=== PATIENT | male | born 1940 | race Caucasian/White ===

== ENCOUNTER 2018-05-01 19:14 | Emergency (ER) | payer OTHER ==
--- NOTE | 2018-05-01 19:21 | PDOC ---
Rapid Medical Evaluation Time Seen by Provider: 05/01/18 19:17 Medical Evaluation: Allergies Allergy/AdvReac Type Severity Reaction Status Date / Time No Known Allergies Allergy Verified 11/18/14 14:43 05/01/18 19:18 I have performed a brief in-person evaluation of this patient. The patient presents with a chief complaint of: epistaxis x4 hours on AC. + digital trauma Pertinent physical exam findings: uncontrolled bleeding from right naris I have ordered the following: nothing The patient will proceed to the ED for further evaluation. Discharge Disposition - Diagnosis Epistaxis - Referrals - Patient Instructions - Post Discharge Activity
[2018-05-01 19:22] VITALS: BP 133/78; PULSE 76; TEMP 97.6; BMI 27.5
[2018-05-01] MEDS ORDERED: LIDOCAINE HCL 1%, 10 MG/ML (50 mL VIAL) INF ONE (23:13)
[2018-05-01] MEDS ORDERED: OXYMETAZOLINE 0.05% NASAL SOLUTION 15 ML BOTTLE NS ONE (23:13)
[2018-05-01] MEDS ORDERED: LIDOCAINE HCL 1%, 10 MG/ML (20ML VIAL) ONE (23:14)
[2018-05-01 23:29] LABS: BASO % 0.7 % (0-2.0); EOS % 2.5 % (0-4.5); HEMATOCRIT 41.8 % (35.4-49); HEMOGLOBIN 14.7 GM/dL (11.7-16.9); LYMPH % 16.5 % (8-40); MCH 33.9 pg (25.7-33.7); MCHC 35.1 g/dl (32.0-35.9); MEAN CELL VOLUME 96.7 fl (80-96); MEAN PLT VOLUME 9.8 fl (7.5-11.1); MONO % 14.6 % (3.8-10.2); NEUT % 65.7 % (42.8-82.8); PLATELET COUNT 159 K/MM3 (134-434); RBC 4.32 M/mm3 (4.00-5.60); RDW 14.1 % (11.9-15.9); WHITE BLOOD COUNT 6.9 K/mm3 (4.0-10.0)
[2018-05-01 23:48] LABS: INR 1.39 (0.83-1.09); PROTHROMBIN TIME (PATIENT) 16.5 SEC (9.7-13.0)
[2018-05-01 23:50] LABS: ACTIVATED PTT 32.2 SECONDS (25.2-36.5)
--- NOTE | 2018-05-02 | PDOC ---
History of Present Illness - General Chief Complaint: Nasal Bleeding Stated Complaint: NOSE BLEED Time Seen by Provider: 05/01/18 19:17 History Source: Patient Exam Limitations: No Limitations - History of Present Illness Initial Comments: 77 y/o M hx of HTN, defib, PCI s/p 3, CVA x2 (2004, 2014), defib, thromboendarterectomy presents with R nasal bleeding that started around 3:30 PM today after he picked his nose. Patient packed his nose with napkin. Patient is on ASA 81 mg daily, Eliquis 5 mg BID and Brilinta 90 mg BID. Denies fever, sob, cp, dizziness, fatigue. 05/01/18 23:42 Past History - Past Medical History Allergies/Adverse Reactions: Allergies Allergy/AdvReac Type Severity Reaction Status Date / Time No Known Allergies Allergy Verified 05/01/18 19:21 Home Medications: Ambulatory Orders Aspirin [ASA -] 81 mg PO HS 11/18/14 Apixaban [Eliquis] 5 mg PO BID 05/01/18 Atorvastatin Ca [Lipitor] 20 mg PO HS 05/01/18 Cyanocobalamin (Vitamin B-12) [Vitamin B12] 1,000 mcg PO DAILY 05/01/18 Folic Acid 1 mg PO DAILY 05/01/18 Ticagrelor [Brilinta] 90 mg PO BID 05/01/18 Vitamin B Complex [B Complex] 1 each PO DAILY 05/01/18 Cephalexin [Keflex] 500 mg PO BID #10 capsule 05/02/18 Cardiac Disorders: Yes COPD: No HTN: Yes - Surgical History Appendectomy: Yes Cardiac Surgery: Yes (defib, stent, thromboendarterectomy) - Suicide/Smoking/Psychosocial Hx Smoking History: Never smoked Have you smoked in the past 12 months: No Hx Alcohol Use: Yes (OCCASIONALLY) Drug/Substance Use Hx: No Substance Use Type: None Hx Substance Use Treatment: No Review of Systems - Review of Systems Comments:: See hpi 05/02/18 00:05 *Physical Exam - Vital Signs Last Vital Signs Temp Pulse Resp BP Pulse Ox 97.6 F 76 18 133/78 99 05/01/18 19:17 05/01/18 19:17 05/01/18 19:17 05/01/18 19:17 05/01/18 19:17 - Physical Exam General Appearance: No: Apparent Distress HEENT: positive: Normal Voice, Other (+Small active bleeding to R nare, unable to see site of bleeding, slight dried blood in posterior pharynx, L nare unremarkable). negative: Muffled/Hoarse voice Neck: positive: Supple Respiratory/Chest: positive: Lungs Clear, Normal Breath Sounds. negative: Respiratory Distress Cardiovascular: positive: Regular Rhythm, Regular Rate, S1, S2. negative: Murmur Neurologic: positive: Fully Oriented, Alert, Normal Mood/Affect Moderate Sedation - Procedure Monitoring Vital Signs: Procedure Monitoring Vital Signs Temperature 97.6 F 05/01/18 19:17 Pulse Rate 76 05/01/18 19:17 Respiratory Rate 18 05/01/18 19:17 Blood Pressure 133/78 05/01/18 19:17 O2 Sat by Pulse Oximetry (%) 99 05/01/18 19:17 ED Treatment Course - LABORATORY CBC & Chemistry Diagram: 05/01/18 23:20 - ADDITIONAL ORDERS Additional order review: 05/01/18 23:20 RBC 4.32 MCV 96.7 H MCHC 35.1 RDW 14.1 MPV 9.8 Neutrophils % 65.7 Lymphocytes % 16.5 Monocytes % 14.6 H Eosinophils % 2.5 D Basophils % 0.7 Medical Decision Making - Medical Decision Making 77 y/o M hx of HTN, defib, PCI s/p 3, CVA x2 (2004, 2014), defib, thromboendarterectomy presents with R nasal bleeding x 1 day; patient is on 3 blood thinners: ASA, Eliquis and Brilinta. Rhinorocket was placed in patient's R nare with improvement in bleeding. Labs show unremarkable CBC. Will d/c patient on Keflex and provide referral to ENT for further care. 05/02/18 00:11 *DC/Admit/Observation/Transfer Diagnosis at time of Disposition: Epistaxis - Discharge Dispostion Disposition: HOME Decision to Admit order: No - Prescriptions Prescriptions: Cephalexin [Keflex] 500 mg PO BID #10 capsule - Referrals Referrals: Vasu Nieves [Primary Care Provider] - 3 days Antonio Sofia MD [Staff Physician] - Call tomorrow - Patient Instructions Printed Discharge Instructions: DI for Nosebleed Additional Instructions: Thank you for choosing [facility]. It was a pleasure taking care of you. You were seen here for nasal bleeding, which was controlled with nasal packing. Please take the antibiotics as directed for 5 days Please call the ENT doctor tomorrow to make appointment for follow-up Use saline nasal spray in nose twice a day Also recommend humdifier. Avoid picking your nose. Return to the Emergency Department if your symptoms worsen or persist, you have fever, shortness of breath, chest pain, heavy bleeding, lightheadedness or other concerning symptoms. - Post Discharge Activity
[2018-05-02] MEDS ORDERED: CEPHALEXIN MONOHYDRATE 500 MG CAPSULE (UD) PO ONE (00:01)
[2018-05-02] MEDS ORDERED: CEPHALEXIN MONOHYDRATE 500 MG CAPSULE (UD) ONE (00:05)
== END 2018-05-02 00:31 | disposition home or self-care (01) ==
LOC: JER 19:14
PROC: 2Y41X5Z Packing of Nasal Region using Packing Material (ICD-10-PCS; principal; 2018-05-01)
PROC: 093K7ZZ Control Bleeding in Nasal Mucosa and Soft Tissue, Via Natural or Artificial Opening (ICD-10-PCS; 2018-05-01)
DX: R04.0 Epistaxis (principal); I25.10 Atherosclerotic heart disease of native coronary artery without angina pectoris; I10 Essential (primary) hypertension; Z95.5 Presence of coronary angioplasty implant and graft; Z86.73 Personal history of transient ischemic attack (TIA), and cerebral infarction without residual deficits; Z79.01 Long term (current) use of anticoagulants; Z95.810 Presence of automatic (implantable) cardiac defibrillator
CPT/HCPCS: 36415; 85025; 85610; 85730; 99281-25; 99282-25

== ENCOUNTER 2019-04-26 06:22 | Inpatient (IN) | payer OTHER ==
[2019-04-26 06:34] VITALS: BMI 27.5
[2019-04-26 06:52] LABS: BASO % 0.9 % (0-2.0); EOS % 2.2 % (0-4.5); HEMATOCRIT 41.2 % (35.4-49); HEMOGLOBIN 14.1 GM/dL (11.7-16.9); LYMPH % 28.6 % (8-40); MCH 33.5 pg (25.7-33.7); MCHC 34.2 g/dl (32.0-35.9); MEAN PLT VOLUME 9.1 fl (7.5-11.1); MONO % 14.4 % (3.8-10.2); NEUT % 53.9 % (42.8-82.8); PLATELET COUNT 156 K/MM3 (134-434); RDW 14.3 % (11.9-15.9); WHITE BLOOD COUNT 7.5 K/mm3 (4.0-10.0)
--- NOTE | 2019-04-26 07:10 | PDOC ---
History of Present Illness - General Chief Complaint: Chest Pain Stated Complaint: DEFIBRILLATOR PROBLEM History Source: Patient Exam Limitations: No Limitations - History of Present Illness Initial Comments: Pt is a 78 yo M, with PMH of CHF, arrhythymia (with ICD, cardiac stent, on eliquis and brilinta), HTN, CVA x2, and LLE DVT, who is presenting via EMS after his ICD "shocked him" this morning at 5:30 AM. Pt states he was awoken from sleep by the shock. Pt states he has been feeling well recently, tolerating PO intake and exercise as normal. Pt states he was recently called to his skill training program coordinator to have the pacemaker evaluated, as it was "setting of the monitor at home". Pt is scheduled to have his ICD replaced 04/[address] Rdz ( [facility]). Pt denies any fevers/chills, headache, vision changes, syncope, chest pain, palpitations, SOB, nausea/vomiting, abdominal pain, urinary symptoms, diarrhea/constipation, or leg swelling. Allergies: NKDA PCP: Dr. Oneil [employer] Specialist: Dr. Hieu Ennis ([phone]) Social: Pt denies any cigarette, alcohol, or drug use. Pt denies any recent travel or sick contacts. Surgical: appendectomy, DVT removal LLE, ICD placement Family: no relevant history. 04/26/19 07:37 Past History - Travel Traveled outside of the country in the last 30 days: No Close contact w/someone who was outside of country & ill: No - Past Medical History Allergies/Adverse Reactions: Allergies Allergy/AdvReac Type Severity Reaction Status Date / Time No Known Allergies Allergy Verified 04/26/19 06:29 Home Medications: Ambulatory Orders Apixaban [Eliquis] 5 mg PO DAILY 04/26/19 Atorvastatin Ca [Lipitor] 20 mg PO HS 04/26/19 Folic Acid 1 mg PO DAILY 04/26/19 Ticagrelor [Brilinta] 90 mg PO DAILY 04/26/19 Cardiac Disorders: Yes COPD: No HTN: Yes - Surgical History Appendectomy: Yes Cardiac Surgery: Yes (defib, stent, thromboendarterectomy) - Psycho Social/Smoking Cessation Hx Smoking History: Never smoked Have you smoked in the past 12 months: No Hx Alcohol Use: Yes (OCCASIONALLY) Drug/Substance Use Hx: No Substance Use Type: None Hx Substance Use Treatment: No Cardiac Specific PMH - Complaint Specific PMHX Abdominal Aortic Aneurysm: No Angina: No Cardiac Arrhythmia: Yes Cardiac Stent: Yes GERD: No Myocardial Infarction: No Pacemaker: Yes Pulmonary Embolus: No Valvular Heart Disease: No Peripheral Vascular Disease: No Review of Systems - Review of Systems Able to Perform ROS?: Yes Is the patient limited Greenlandic proficient: No Constitutional: Yes: Weight Stable. No: Chills, Diaphoresis, Fever, Loss of Appetite, Malaise, Weakness HEENTM: No: Recent change in vision, Nose Congestion, Throat Pain, Throat Swelling, Difficulty Swallowing Respiratory: No: Cough, Orthopnea, Shortness of Breath Cardiac (ROS): Yes: See HPI. No: Chest Pain, Edema, Irregular Heart Rate, Lightheadedness, Palpitations, Syncope, Chest Tightness ABD/GI: No: Constipated, Diarrhea, Nausea, Poor Appetite, Vomiting, Abdominal cramping : No: Burning, Dysuria, Frequency, Pain, Urgency Musculoskeletal: No: Back Pain, Joint Pain, Muscle Pain, Muscle Weakness Integumentary: No: Rash Neurological: No: Headache, Numbness, Weakness, Unsteady Gait, Dizziness Psychiatric: No: Sleep Pattern Change, Change in Appetite Endocrine: No: Increased Urine, Change in Weight Hematologic/Lymphatic: Yes: See HPI, Blood Clots. No: Anemia, Easy Bleeding, Easy Bruising All Other Systems: Reviewed and Negative *Physical Exam - Vital Signs Last Vital Signs Temp Pulse Resp BP Pulse Ox 98.3 F 63 14 134/84 98 04/26/19 07:19 04/26/19 07:19 04/26/19 07:19 04/26/19 07:19 04/26/19 07:19 - Physical Exam Comments: HR 50s, BP 134/84 on exam, pt afebrile. Pt in NAD, resting comfortably. Normal body habitus. Pt alert and oriented x3. 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 No midline spinal tenderness, step-offs, or crepitus. Head normocephalic, atraumatic. Eyes PERRLA, EOMI. Oropharynx without erythema or exudates, no LAD b/l. No nasal congestion. Hearing intact. Irregular HR on exam. ICD in left chest wall. Clear heart sounds, S1/S2, no JVD , b/l pedal edema, or heart murmur. Clear lung sounds, no respiratory distress, wheezes, crackles, or accessory muscle use. No abdominal or CVA tenderness to palpation, no rebound, no guarding. Abdomen soft, non-distended, and with normoactive bowel sounds. Skin without jaundice or rash. 04/26/19 07:46 ED Treatment Course - LABORATORY CBC & Chemistry Diagram: 04/26/19 06:38 04/26/19 06:38 - ADDITIONAL ORDERS Additional order review: Laboratory Results 04/26/19 04/26/19 04/26/19 06:38 06:38 06:38 PT with INR 15.10 H INR 1.28 H PTT (Actin FS) 25.1 L Sodium 140 Potassium 4.0 Chloride 106 Carbon Dioxide 27 Anion Gap 7 L BUN 16.8 Creatinine 1.3 Est GFR (CKD-EPI)AfAm 60.57 Est GFR (CKD-EPI)NonAf 52.26 Random Glucose 85 Calcium 8.9 Magnesium 2.1 Total Bilirubin 0.7 AST 28 ALT 22 Alkaline Phosphatase 83 Creatine Kinase 130 Cancelled Troponin I 0.04 Cancelled Total Protein 7.5 Albumin 3.5 04/26/19 06:38 RBC 4.20 MCV 98.0 H MCHC 34.2 RDW 14.3 MPV 9.1 Neutrophils % 53.9 Lymphocytes % 28.6 D Monocytes % 14.4 H Eosinophils % 2.2 Basophils % 0.9 Medical Decision Making - Medical Decision Making Pt was seen at bedside, also will be seen by attending Dr. Chappell. Pt presenting after his ICD went off this morning. Pt currently asymptomatic, with non- sustained PVCs. Pt declined any nausea or pain control at this time. Will continue to reassess pt and monitor for symptomatic improvement. ECG: Sinus bradycardia with occasional premature supraventricular complexes and PVCs, RBBB (Hr 69, RI 156, QRS 162, QTc 535). No TWIs or significant ST segment changes. Unable to view prior ECG (2014). Pt provided ECG from another hospital from 2018 with PVCs at that time. 04/26/19 07:47 CBC and CMP WNL Trop .04 Placed call to pts skill training program coordinator and CT surgeon to discuss earlier placement or discharge with f/u for scheduled procedure on Sunday. 04/26/19 07:49 Chest x-ray with pacemaker noted. No acute pathology. 04/26/19 07:[address] Rdz (CT at [facility]), who accepted the pt for transfer and is arranging. Pt signed transfer consent. Pt stable and resting, no further cardiac/defib events. 04/26/19 09:07 Discharge - Discharge Information Problems reviewed: Yes Clinical Impression/Diagnosis: ICD (implantable cardioverter-defibrillator) lead failure Qualifiers: Encounter type: initial encounter Qualified Code(s): T82.110A - Breakdown ( mechanical) of cardiac electrode, initial encounter Condition: Stable Disposition: TRANSFER ACUTE CARE/OTHER HOSP - Admission No - Follow up/Referral Referrals: Vasu Nieves [Primary Care Provider] - - Patient Discharge Instructions - Post Discharge Activity - Transfer to Acute Care Facility Accepting Physician:: Dr. Rdz Transfer Comment: [facility], [place] unit for ICD replacement 04/26/19 09:07
[2019-04-26 07:17] LABS: INR 1.28 (0.83-1.09); PROTHROMBIN TIME (PATIENT) 15.1 SEC (9.7-13.0)
[2019-04-26 07:20] LABS: ACTIVATED PTT 25.1 SECONDS (25.2-36.5); ALBUMIN 3.5 g/dl (3.4-5.0); BILIRUBIN,TOTAL 0.7 mg/dL (0.2-1); BLOOD UREA NITROGEN 16.8 mg/dL (7-18); CALCIUM 8.9 mg/dL (8.5-10.1); CREATININE 1.3 mg/dL (0.55-1.3); MAGNESIUM 2.1 mg/dL (1.8-2.4); TOT PROT 7.5 g/dl (6.4-8.2)
--- NOTE | 2019-04-26 08:03 | PDOC ---
Attending Attestation - Resident Resident Name: Nia Kowalski - ED Attending Attestation I have performed the following: I have examined & evaluated the patient, The case was reviewed & discussed with the resident, I agree w/resident's findings & plan, Exceptions are as noted - HPI HPI: 04/26/19 08:00 78-year-old gentleman history of CHF, A. fib on Eliquis, hypertension, CVA, DVT presenting to the ED via EMS due to his ICD going off. Patient denies any other symptoms states that the past few days he has been feeling fine without any chest pain, syncope, shortness of breath, lightheadedness, palpitations, fever, chills, n/v, cough, abdominal pain, back pain. Patient states that he has been getting preop to get his defibrillator replaced. Exam: GENERAL: The patient is awake, alert, and fully oriented, Nontoxic - in no acute distress. HEAD: Normocephalic, atraumatic. EYES: extraocular movements intact, sclera anicteric, conjunctiva clear. ENT: Normal voice, Moist mucous membranes. NECK: Normal range of motion, supple LUNGS: Breath sounds equal, clear to auscultation bilaterally. No wheezes, no rhonchi, no rales. icd in place on L chest HEART: Regular rate and rhythm, normal S1 and S2 without murmur, rub or gallop. ABDOMEN: Soft, nontender, No guarding, no rebound. No CVA tenderness EXTREMITIES: Normal range of motion, hyperpigmentation of lower externally's bilaterally, trace pitting edema NEUROLOGICAL: No facial assymetry, Normal speech, PSYCH: Normal mood, normal affect. SKIN: Warm, Dry, normal turgor, Patient is on a campus monitor, We will check electrolytes, troponin, EKG We will discuss with cardiology regarding disposition and need for interrogation - Physicial Exam PE: 04/26/19 11:02 labs reviewed will admit for further management
--- NOTE | 2019-04-26 09:46 | PDOC ---
*Physical Exam - Vital Signs Last Vital Signs Temp Pulse Resp BP Pulse Ox 98.3 F 63 14 134/84 98 04/26/19 07:19 04/26/19 07:19 04/26/19 07:19 04/26/19 07:19 04/26/19 07:19 ED Treatment Course - LABORATORY CBC & Chemistry Diagram: 04/26/19 06:38 04/26/19 06:38 - ADDITIONAL ORDERS Additional order review: Laboratory Results 04/26/19 04/26/19 04/26/19 06:38 06:38 06:38 PT with INR 15.10 H INR 1.28 H PTT (Actin FS) 25.1 L Sodium 140 Potassium 4.0 Chloride 106 Carbon Dioxide 27 Anion Gap 7 L BUN 16.8 Creatinine 1.3 Est GFR (CKD-EPI)AfAm 60.57 Est GFR (CKD-EPI)NonAf 52.26 Random Glucose 85 Calcium 8.9 Magnesium 2.1 Total Bilirubin 0.7 AST 28 ALT 22 Alkaline Phosphatase 83 Creatine Kinase 130 Cancelled Troponin I 0.04 Cancelled Total Protein 7.5 Albumin 3.5 04/26/19 06:38 RBC 4.20 MCV 98.0 H MCHC 34.2 RDW 14.3 MPV 9.1 Neutrophils % 53.9 Lymphocytes % 28.6 D Monocytes % 14.4 H Eosinophils % 2.2 Basophils % 0.9 Medical Decision Making - Medical Decision Making Transfer to [facility] will not happen until tomorrow due to bed availability. Pt will be admitted to Dr. Bianchi (admits for Dr. Oneil) for telemetry until pt can be transferred via ACLS. Pt requires observation due to ICD failure. Paged Dr. Bianchi 04/26/19 09:[address] Bianchi for admission. 04/26/19 10:16 Discharge - Discharge Information Problems reviewed: Yes Clinical Impression/Diagnosis: ICD (implantable cardioverter-defibrillator) lead failure Qualifiers: Encounter type: initial encounter Qualified Code(s): T82.110A - Breakdown ( mechanical) of cardiac electrode, initial encounter Condition: Stable - Admission Yes - Follow up/Referral Referrals: Vasu Nieves [Primary Care Provider] - - Patient Discharge Instructions - Post Discharge Activity
--- NOTE | 2019-04-26 14:01 | HP ---
Admitting History and Physical - Admission History of Present Illness: Pt is a 78 yo M, with PMH of CHF, arrhythymia (with ICD, cardiac stent, on eliquis and brilinta), HTN, CVA x2, and LLE DVT, who is presenting via EMS after his ICD "shocked him" this morning at 5:30 AM. Pt states he was awoken from sleep by the shock. Pt states he has been feeling well recently, tolerating PO intake and exercise as normal. Pt states he was recently called to his fur sorter to have the pacemaker evaluated, as it was "setting of the monitor at home". Pt is scheduled to have his ICD replaced 04/[address] Rdz ( [facility]). Pt denies any fevers/chills, headache, vision changes, syncope, chest pain, palpitations, SOB, nausea/vomiting, abdominal pain, urinary symptoms, diarrhea/constipation, or leg swelling. 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 No: Seizure, Syncope, Vertigo Cardiovascular: Yes: CAD, HTN - Past Surgical History Past Surgical History: Yes: Stent - Smoking History Smoking history: Never smoked Have you smoked in the past 12 months: No - Alcohol/Substance Use Hx Alcohol Use: Yes (OCCASIONALLY) Home Medications - Allergies Allergies/Adverse Reactions: Allergies Allergy/AdvReac Type Severity Reaction Status Date / Time No Known Allergies Allergy Verified 04/26/19 06:29 - Home Medications Home Medications: Ambulatory Orders Atorvastatin Ca [Lipitor] 20 mg PO HS 04/26/19 Folic Acid 1 mg PO DAILY 04/26/19 Review of Systems - Review of Systems Constitutional: reports: No Symptoms Eyes: reports: No Symptoms HENT: reports: No Symptoms Neck: reports: No Symptoms Cardiovascular: reports: Other (ICD malfunction / missfire) Respiratory: reports: No Symptoms Gastrointestinal: reports: No Symptoms Genitourinary: reports: No Symptoms Musculoskeletal: reports: No Symptoms Integumentary: reports: No Symptoms Neurological: reports: No Symptoms Endocrine: reports: No Symptoms Hematology/Lymphatic: reports: No Symptoms Psychiatric: reports: No Symptoms Physical Examination Vital Signs: Vital Signs Temperature 98.3 F 04/26/19 07:19 Pulse Rate 59 L 04/26/19 09:59 Respiratory Rate 22 H 04/26/19 09:59 Blood Pressure 139/77 04/26/19 09:59 O2 Sat by Pulse Oximetry (%) 100 04/26/19 09:59 Constitutional: Yes: Well Nourished, No Distress, Calm Eyes: Yes: Conjunctiva Clear, EOM Intact HENT: Yes: Atraumatic, Normocephalic Neck: Yes: Supple, Trachea Midline Cardiovascular: Yes: Regular Rate and Rhythm Respiratory: Yes: Regular, CTA Bilaterally Gastrointestinal: Yes: Normal Bowel Sounds, Soft ...Rectal Exam: Yes: Deferred Renal/: Yes: WNL Breast(s): Yes: WNL Musculoskeletal: Yes: WNL Extremities: Yes: WNL Edema: No Peripheral Pulses WNL: Yes Neurological: Yes: Alert, Oriented ...Motor Strength: WNL Psychiatric: Yes: Alert, Oriented Labs: CBC, BMP 04/26/19 06:38 04/26/19 06:38 Problem List - Problems (1) ICD (implantable cardioverter-defibrillator) lead failure Code(s): T82.110A - BREAKDOWN (MECHANICAL) OF CARDIAC ELECTRODE, INIT ENCNTR Qualifiers: Encounter type: initial encounter Qualified Code(s): T82.110A - Breakdown ( mechanical) of cardiac electrode, initial encounter
--- NOTE | 2019-04-26 18:02 | EKG ---
Test Reason : Blood Pressure : / mmHG Vent. Rate : 069 BPM Atrial Rate : 055 BPM P-R Int : 156 ms QRS Dur : 162 ms QT Int : 500 ms P-R-T Axes : 062 077 033 degrees QTc Int : 535 ms Suspect unspecified pacemaker failure SINUS BRADYCARDIA WITH OCCASIONAL ventricular-paced complexes AND PREMATURE SUPRAVENTRICULAR COMPLEXES AND WITH FREQUENT PREMATURE VENTRICULAR COMPLEXES RIGHT BUNDLE BRANCH BLOCK LATERAL INFARCT , AGE UNDETERMINED CANNOT RULE OUT INFERIOR INFARCT , AGE UNDETERMINED ABNORMAL ECG Confirmed by MD Jocelin, Harlan ([id number]) on 04/26/2019 6:02:08 PM Referred By: EDMAR Confirmed By:Harlan Monreal MD
[2019-04-26] MEDS ORDERED: ATORVASTATIN CA 20 MG TABLET (FP) PO SCH (22:00)
[2019-04-27 07:45] LABS: BASO % 0.6 % (0-2.0); EOS % 3.2 % (0-4.5); HEMATOCRIT 39.7 % (35.4-49); HEMOGLOBIN 13.4 GM/dL (11.7-16.9); LYMPH % 22.2 % (8-40); MCH 33.1 pg (25.7-33.7); MCHC 33.7 g/dl (32.0-35.9); MEAN CELL VOLUME 98.3 fl (80-96); MEAN PLT VOLUME 9.5 fl (7.5-11.1); MONO % 14.1 % (3.8-10.2); NEUT % 59.9 % (42.8-82.8); PLATELET COUNT 149 K/MM3 (134-434); RBC 4.04 M/mm3 (4.00-5.60); RDW 14.1 % (11.9-15.9); WHITE BLOOD COUNT 6.6 K/mm3 (4.0-10.0)
[2019-04-27 08:22] VITALS: BP 143/96; PULSE 69; TEMP 98.8
[2019-04-27 08:22] LABS: BLOOD UREA NITROGEN 15.2 mg/dL (7-18); CALCIUM 8.8 mg/dL (8.5-10.1); MAGNESIUM 2.2 mg/dL (1.8-2.4); POTASSIUM 4.6 mmol/L (3.5-5.1)
[2019-04-27] MEDS ORDERED: FOLIC ACID 1 MG TABLET (FP) PO SCH (10:00)
[2019-04-27] MEDS ORDERED: PT OWN MED DRAWER 7, Y5N ONE (10:56)
--- NOTE | 2019-04-27 13:48 | DS ---
Physical Examination Vital Signs: Vital Signs Temperature 98.8 F 04/27/19 08:21 Pulse Rate 69 04/27/19 08:21 Respiratory Rate 18 04/27/19 08:21 Blood Pressure 143/96 04/27/19 08:21 O2 Sat by Pulse Oximetry (%) 98 04/27/19 09:00 Findings/Remarks: - History of Present Illness Initial Comments: Pt is a 78 yo M, with PMH of CHF, arrhythymia (with ICD, cardiac stent, on eliquis and brilinta), HTN, CVA x2, and LLE DVT, who is presenting via EMS after his ICD "shocked him" this morning at 5:30 AM. Pt states he was awoken from sleep by the shock. Pt states he has been feeling well recently, tolerating PO intake and exercise as normal. Pt states he was recently called to his principal trainer to have the pacemaker evaluated, as it was "setting of the monitor at home". Pt is scheduled to have his ICD replaced 04/[address] Rdz ( [facility]). Pt denies any fevers/chills, headache, vision changes, syncope, chest pain, palpitations, SOB, nausea/vomiting, abdominal pain, urinary symptoms, diarrhea/constipation, or leg swelling. Patient admitted to telemetry awaiting bed avaiability to [facility] No arrhythmia overnight mostly paced rhythm Constitutional: Yes: Well Nourished, No Distress, Calm Eyes: Yes: Conjunctiva Clear, EOM Intact HENT: Yes: Atraumatic, Normocephalic Neck: Yes: Supple, Trachea Midline Cardiovascular: Yes: Regular Rate and Rhythm Respiratory: Yes: CTA Bilaterally Gastrointestinal: Yes: Normal Bowel Sounds, Soft ...Rectal Exam: Yes: Deferred Renal/: Yes: WNL Breast(s): Yes: WNL Musculoskeletal: Yes: WNL Extremities: Yes: WNL Edema: Yes Peripheral Pulses WNL: Yes Neurological: Yes: WNL, Pre-Existing Deficit Labs: CBC, BMP 04/27/19 07:05 04/27/19 07:05 Discharge Summary Problems reviewed: Yes Reason For Visit: FAILURE OF IMPLANTABLE CARDIOVERTER-DEFIBRILLATOR Current Active Problems ICD (implantable cardioverter-defibrillator) lead failure (Acute) Hospital Course: uncomplicated Berlinta and Eliquis on HOLD scheduled for OR on sunday04/29/2019 Condition: Stable - Instructions Referrals: Vasu Nieves [Primary Care Provider] - Disposition: TRANSFER ACUTE CARE/OTHER HOSP - Home Medications Comprehensive Discharge Medication List: Ambulatory Orders Atorvastatin Ca [Lipitor] 20 mg PO HS 04/26/19 Folic Acid 1 mg PO DAILY 04/26/19
--- NOTE | 2019-04-27 13:49 | EKG ---
Test Reason : Blood Pressure : / mmHG Vent. Rate : 082 BPM Atrial Rate : 050 BPM P-R Int : 152 ms QRS Dur : 152 ms QT Int : 476 ms P-R-T Axes : 033 045 -03 degrees QTc Int : 556 ms sinus rhythm with episodes of atrial pacing pvc's RIGHT BUNDLE BRANCH BLOCK POSSIBLE LATERAL INFARCT , AGE UNDETERMINED CANNOT RULE OUT INFERIOR INFARCT , AGE UNDETERMINED ABNORMAL ECG Confirmed by MD Jocelin, Harlan ([id number]) on 04/27/2019 1:49:04 PM Referred By: Hari RODRIGUEZ Confirmed By:Harlan Monreal MD
== END 2019-04-27 14:00 | disposition short-term general hospital (02) | DRG 309 ==
LOC: JER 06:22 → JERBED 09:37 → J4S 15:28
PROVIDERS: ADMIT Family Medicine; ATTEND Family Medicine
DX: T82.110A Breakdown (mechanical) of cardiac electrode, initial encounter (principal); I47.1 Supraventricular tachycardia; Y83.9 Surgical procedure, unspecified as the cause of abnormal reaction of the patient, or of later complication, without mention of misadventure at the time of the procedure; I11.0 Hypertensive heart disease with heart failure; I50.9 Heart failure, unspecified; I45.10 Unspecified right bundle-branch block
CPT/HCPCS: 36415; 71045-TC-FY; 80048; 80053; 82550; 83735; 84484; 85025; 85610; 85730; 93005; 93010; 99285-25